=== PATIENT | male | born 1940 | race Caucasian/White ===

== ENCOUNTER 2020-05-02 07:24 | Day surgery (SDC) | payer MEDICARE ==
[~2020-05-02 07:24] MED LIST: Lactated Ringers 1,000 ML IV SCH; Lidocaine 1%/Sod Bicarbonate in NS 8.4% 1 ML Syringe IDERM PRN; Sodium Chloride 0.9% 10 ML Syringe FLUSH PRN
[2020-05-02] MEDS ORDERED: Propofol 200 MG/20 ML SDV ONE (08:14)
[2020-05-02] MEDS ORDERED: fentaNYL 100 MCG/2 ML SDV ONE (08:15)
[2020-05-02] MEDS ORDERED: Lidocaine 1% 4 ML ONE (08:15)
--- NOTE | 2020-05-02 08:57 | PCM.PREANE ---
Preanesthetic Assessment - Procedure Proposed Procedure: EGD and Colonoscopy - Anesthesia/Transfusion/Family Hx Anesthesia History: Prior Anesthesia Without Reaction - Review of Systems General: No Symptoms Pulmonary: No Symptoms Cardiovascular: No Symptoms, Other (Pacemeker - A-pacing) Gastrointestinal: No Symptoms Neurological: No Symptoms, Other (Dementia) Other: Reports: None - Physical Assessment NPO Status Date: 05/01/20 NPO Status Time: 23:00 Vital Signs: Last Vital Signs Temp 97.6 F 05/02/20 07:20 Pulse 73 05/02/20 07:20 Resp 16 05/02/20 07:20 BP 145/58 H 05/02/20 07:20 Pulse Ox 98 05/02/20 07:20 Height: 1.83 m Weight: 78.471 kg ASA Class: 3 Mental Status: Alert & Oriented x3 Airway Class: Mallampati = 1 Dentition: Reports: Normal Dentition, [place](s) Thyro-Mental Finger Breadths: 3 Mouth Opening Finger Breadths: 3 ROM/Head Extension: Full Lungs: Clear to Auscultation, Normal Respiratory Effort Cardiovascular: Other (Atrially paced) - Lab Values: Laboratory Last Values POC Glucose 126 mg/dL (83-110) H 05/02/20 07:38 - Allergies Allergies/Adverse Reactions: Allergies Allergy/AdvReac Type Severity Reaction Status Date / Time adhesive Allergy Cannot Verified 05/02/20 08:15 Remember ramipril Allergy Cannot Verified 05/02/20 08:15 Remember - Anesthesia Plan Beta Boris: Atenolol Med Last Dose Date: 05/02/20 Med Last Dose Time: 06:30 - Acknowledgements Anesthesia Type Planned: MAC Pt an Appropriate Candidate for the Planned Anesthesia: Yes Alternatives and Risks of Anesthesia Discussed w Pt/Guardian: Yes Pt/Guardian Understands and Agrees with Anesthesia Plan: Yes Additional Comments: Due to patient's dementia, phone interview was conducted with the patient's son, Kalia James. Explanations given and phone consent obtained , witnessed by Juan Presley RN PreAnesthesia Questionnaire HEENT History: Reports: None Cardiovascular History: Reports: Afib, Hypertension, Pacemaker, Other (See Below) Other Cardiovascular History: aortic stenosis Respiratory History: Reports: None Gastrointestinal History: Reports: GERD Genitourinary History: Reports: None [employer] History: Reports: None Musculoskeletal History: Reports: None Neurological History: Reports: Other (See Below) Other Neuro History: amnesia, dementia Psychiatric History: Reports: None Endocrine/Metabolic History: Reports: Diabetes, Type II, Hypothyroidism Hematologic History: Reports: None Immunologic History: Reports: None Oncologic (Cancer) History: Reports: None Dermatologic History: Reports: None - Infectious Disease History Infectious Disease History: Reports: None - Past Surgical History Head Surgeries/Procedures: Reports: None HEENT Surgical History: Reports: None Cardiovascular Surgical History: Reports: Pacer Respiratory Surgical History: Reports: None GI Surgical History: Reports: None Female Surgical History: Reports: None Male Surgical History: Reports: None Endocrine Surgical History: Reports: None Neurological Surgical History: Reports: None Musculoskeletal Surgical History: Reports: None Oncologic Surgical History: Reports: None Dermatological Surgical History: Reports: None - SUBSTANCE USE Tobacco Use Status *Q: Former Tobacco User Recreational Drug Use History: No - HOME MEDS Home Medications: Home Meds Apixaban [Eliquis] 5 mg PO BID 04/29/20 [History] Brimonidine [Alphagan 0.2% Ophth Soln] 1 drop EYEBOTH BID 04/29/20 [History] Cyanocobalamin (Vitamin B-12) [Vitamin B-12] 1,000 mcg PO DAILY 04/29/20 [History] Donepezil HCl [Aricept] 10 mg PO DAILY 04/29/20 [History] Folic Acid 1 mg PO DAILY 04/29/20 [History] Levothyroxine 25 mcg PO DAILY 04/29/20 [History] Melatonin 3 mg PO BEDTIME PRN 04/29/20 [History] Multivitamin 1 tab PO DAILY 04/29/20 [History] Nitroglycerin [Nitrostat] 0.4 mg SL ASDIRECTED PRN 04/29/20 [History] Sertraline [Zoloft] 25 mg PO DAILY 04/29/20 [History] Simvastatin [Zocor] 40 mg PO DAILY 04/29/20 [History] Tamsulosin HCl [Flomax] 0.4 mg PO DAILY 04/29/20 [History] Travoprost [Travatan Z] 1 drop EYEBOTH BEDTIME 04/29/20 [History] atenoloL [Atenolol] 25 mg PO DAILY 04/29/20 [History] - CURRENT (IN HOUSE) MEDS Current Meds: Current Medications Lactated Ringer's (Ringers, Lactated) 1,000 mls @ 125 mls/hr IV ASDIRECTED HERBIE Stop: 05/02/20 23:00 Last Admin: 05/02/20 07:35 Dose: 125 mls/hr Documented by: Lidocaine/Sodium Bicarbonate (Lidocaine 1%/Sod Bicarbonate In Ns 8.4% 1 Ml Syringe) 0.25 ml IDERM ONETIME PRN PRN Reason: Prior to IV Start Stop: 05/02/20 18:00 Last Admin: 05/02/20 07:35 Dose: 0.25 ml Documented by: Sodium Chloride (Sodium Chloride 0.9% 10 Ml Syringe) 10 ml FLUSH ASDIRECTED PRN PRN Reason: Keep Vein Open Stop: 05/02/20 18:00 Discontinued Medications Fentanyl (Fentanyl 100 Mcg/2 Ml Sdv) Confirm Administered Dose 100 mcg .ROUTE .STK-MED ONE Stop: 05/02/20 08:16 Lidocaine HCl (Xylocaine-Mpf 1%) Confirm Administered Dose 4 mls @ as directed .ROUTE .STK-MED ONE Stop: 05/02/20 08:16 Propofol (Propofol 200 Mg/20 Ml Sdv) Confirm Administered Dose 400 mg .ROUTE .STK-MED ONE Stop: 05/02/20 08:15
[2020-05-02] MEDS ORDERED: Lactated Ringers 1,000 ML ONE (09:03)
--- NOTE | 2020-05-02 10:32 | PROC ---
DATE OF OPERATION: 05/02/2020 SURGEON: Wendy Dos Santos MD PREOPERATIVE DIAGNOSIS: Gastrointestinal bleeding. POSTOPERATIVE DIAGNOSES: 1. Extensive diverticulosis. 2. Polyp in the sigmoid colon. 3. Angiodysplasia in the distal rectum - not actively bleeding OPERATION PERFORMED: 1. Esophagogastroduodenoscopy. 2. Colonoscopy. ANESTHESIA: Monitored anesthesia care. COMPLICATIONS: None. ESTIMATED BLOOD LOSS: Minimal. INDICATIONS AND CONSENT: Mr. Dustin James is a 79-year-old male, who has dementia. The patient had a history of GI bleeding with anemia. Presented to my clinic. I evaluated the patient and offered diagnostic EGD and colonoscopy. The patient has a sick sinus syndrome and on pacemaker and Eliquis. The patient had Eliquis stopped about a month ago once the GI bleeding was noted. Because of this, we discussed risks, benefits, and alternatives with the patient's POA, who is his son, and informed consent was obtained. DETAILS OF PROCEDURE: The patient was taken to the procedure room, placed in supine position. Monitored anesthesia care was induced and the patient's position was changed to left lateral decubitus. Bite block was placed and time-out was performed. Then, upper scope was taken, placed through the mouth and taken all the way to the second portion of duodenum. Second portion of duodenum and duodenal bulb were normal, and first portion of duodenum was normal. The antrum as well as stomach body were normal. On retroflexion, there was evidence of at least a partial fundoplication in the hiatus, but the hiatus was still patulous. The GE junction was slightly irregular, but appeared to be normal. The entire esophagus was normal. There was no source of bleeding from the upper endoscopy. We went with the colonoscopy. Perianal exam, digital rectal exams were normal. We took the colonoscopy, took it all the way to the cecum. Appendiceal orifice and ileocecal valve were photographed. We started withdrawing from the hepatic flexure. We started seeing some large scattered diverticulosis, but no source of bleeding in the flexure or transverse colon or descending or sigmoid colon. There was one 4 mm polyp in the sigmoid colon that was taken out with the Jumbo forceps. Then down to the proximal rectum, there were no abnormalities there. On retroflexion, there were grade II hemorrhoids and diffuse superficial fragile veins just starting from the distal rectum and all these were actually just in the distal rectum, right proximal to the hemorrhoids- consistent with angiodysplasia. There were no signs of inflammation. One biopsy was taken here to evaluate this area. Due to the extensive nature of the superficial veins, we deemed that the best treatment would be argon beam, which we do not have here. Therefore, the patient will be referred to [facility] to evaluate him for argon beam coagulation for these veins. Otherwise, there were no other abnormalities besides the hemorrhoids and these veins. Air was suctioned out and procedure concluded. EBL was minimal. The patient will be allowed to wake up and return to his facility. MMODAL /[id number] SANTO
--- NOTE | 2020-05-02 10:53 | PCM48HPAN ---
Post Anesthesia Note - EVALUATION WITHIN 48HRS OF ANESTHETIC Vital Signs in Normal Range: Yes Patient Participated in Evaluation: Yes Respiratory Function Stable: Yes Airway Patent: Yes Cardiovascular Function Stable: Yes Hydration Status Stable: Yes Pain Control Satisfactory: Yes Nausea and Vomiting Control Satisfactory: Yes Mental Status Recovered: Yes Vital Signs: Last Vital Signs Temp 98.8 F 05/02/20 09:34 Pulse 70 05/02/20 10:30 Resp 17 05/02/20 10:30 BP 117/89 05/02/20 10:30 Pulse Ox 99 05/02/20 10:30
== END 2020-05-02 10:47 | disposition home or self-care (01) ==
LOC: JD.SDS 07:24
PROVIDERS: ATTEND Surgery
DX: D12.5 Benign neoplasm of sigmoid colon (principal); K57.30 Diverticulosis of large intestine without perforation or abscess without bleeding; K64.9 Unspecified hemorrhoids; K62.89 Other specified diseases of anus and rectum; D64.9 Anemia, unspecified; I10 Essential (primary) hypertension; E03.9 Hypothyroidism, unspecified; E11.9 Type 2 diabetes mellitus without complications; F03.90 Unspecified dementia, unspecified severity, without behavioral disturbance, psychotic disturbance, mood disturbance, and anxiety; Z91.09 Other allergy status, other than to drugs and biological substances; Z79.899 Other long term (current) drug therapy; Z87.891 Personal history of nicotine dependence; Z95.0 Presence of cardiac pacemaker; Z85.46 Personal history of malignant neoplasm of prostate; Z95.5 Presence of coronary angioplasty implant and graft; Z98.890 Other specified postprocedural states
CPT/HCPCS: 43235; 45380; 82962; J2370; J2704; J3010; J7120; 00813; 88305